=== PATIENT | male | born 1965 | race Caucasian/White ===

== ENCOUNTER 2025-01-17 23:11 | Emergency (ER) | payer SELFPAY ==
[2025-01-17 23:14] VITALS: BP 157/76; PULSE 100; RESP 28; TEMP 36.8; O2SAT 90; BMI 32.5
--- NOTE | 2025-01-17 23:46 | XRR_ITS ---
PROCEDURE INFORMATION: Exam: XR Chest Exam date and time: 01/17/2025 11:51 PM Age: 59 years old Clinical indication: Shortness of breath; Additional info: Sob/ copd TECHNIQUE: Imaging protocol: Radiologic exam of the chest. Views: 1 view. COMPARISON: No relevant prior studies available. FINDINGS: Lungs: Mild COPD. No consolidation. Minor areas of bibasilar atelectasis or scarring. A few minute calcified lung nodules are seen incidentally. Pleural spaces: Unremarkable. No pleural effusion. No pneumothorax. Heart/Mediastinum: Borderline cardiomegaly. Bones/joints: Unremarkable. XR/XR chest 1V portable [id number] IMPRESSION: No acute findings.
--- NOTE | 2025-01-17 23:53 | ED_ITS ---
Documented by User: MIC Jessica 01/17/25 23:56 HPI - URI/Sore Throat 2 General: Chief Complaint: Upper Respiratory Infection Stated Complaint: fever wont break cough Time Seen by Provider: 01/17/25 23:28 Source: patient Mode of arrival: ambulatory Limitations: no limitations History of Present Illness: This patient is a 59-year-old male with reported past medical history of COPD who presents emerged department complaining of multiple upper respiratory symptoms beginning yesterday. States that he woke up last night with chills and diffuse bodyaches to his back and lower extremities. Also has been running a fever that he states was unable to break until he took a hot bath before coming to the ED, temp 98.3 during triage. Also of note is having shortness of breath as well as a productive cough, has been using his albuterol inhaler. Is noting some lower abdominal pain that is intermittent overall. Noting congestion and rhinorrhea. No known sick contact exposure. No calf swelling or pain reported. No chest pain or palpitations. He notes that he has been taking ibuprofen all day, has taken 24 200 mg tablets. MD elicited complaint: fever, cough, rhinorrhea and nasal congestion Pertinent past history: COPD Onset (ago): day(s) Consistency: constant Severity: moderate Description of mucous: clear Able to tolerate fluids by mouth: Yes Associated symptoms: Reports abdominal pain, chills, fever(s) and nasal congestion; Deny chest pain, diarrhea, ear or mastoid pain, headache(s), nausea or vomiting Treatments prior to arrival: ibuprofen and other (Albuterol inhaler) Related Data Allergies Allergy/AdvReac Type Severity Reaction Status Date / Time No Known Allergies Allergy Verified 01/17/25 23:23 Review of Systems 2 General: Reports: 10 or more systems reviewed and unremarkable except in HPI and below Const: Reports: fever(s), chills and body aches; Denies: fatigue Eyes: Denies: change in vision ENMT: Reports: nasal discharge and nasal congestion; Denies: throat pain or ear or mastoid pain Card: Denies: chest pain, palpitations, swelling of feet/ankles or lightheadedness Resp: Reports: dyspnea and productive cough; Denies: wheezing GI: Reports: abdominal pain; Denies: nausea, vomiting, diarrhea or constipation : Denies: flank pain, difficulty urinating, dysuria or urinary frequency Musc: Reports: back pain and extremity pain; Denies: neck pain or joint pain Skin/Breast: Denies: rash Neuro: Denies: headache(s), numbness in extremities or weakness in extremities Physical Exam 2 Const: COMMON NORMALS: no acute distress, patient oriented x3 and no limitations GENERAL APPEARANCE: cooperative, comfortable and well developed ORIENTATION/CONSCIOUSNESS: Yes awake, Yes oriented to person, Yes oriented to place and Yes oriented to time HENMT: COMMON NORMALS: normocephalic, atraumatic and hearing grossly normal bilaterally HEAD & SCALP: normocephalic and atraumatic Eye: COMMON NORMALS: Equal, round and reactive pupils present, EOMs intact bilaterally and conjunctivae normal CONJUNCTIVA: Yes conjunctivae normal P UPIL: Yes Equal, round and reactive pupils present Neck/C-Spine: COMMON NORMALS: full ROM, supple and no JVD Resp: COMMON NORMALS: normal respiratory effort, No retractions and No use of accessory muscles OTHER: Mild diffuse expiratory wheezing. Mild tachypnea. No use of accessory muscles. Cardio: COMMON NORMALS: no JVD, regular rate, regular rhythm, No clicks present (Cardio), No murmurs present (Cardio) and No rub (Cardio) RATE: r egular rate RHYTHM: regular rhythm GI: COMMON NORMALS: Normal to inspection, nondistended, normoactive bowel sounds present, Soft to palpation and non-tender INSPECTION: Yes central obesity AUSCULTATION: Yes normoactive bowel sounds PALPATION: Yes Soft to palpation RECTAL EXAM: Yes deferred Extremity: COMMON NORMALS: normal to inspection, full ROM, capillary refill normal, no clubbing, cyanosis or edema, no calf tenderness and no pedal edema Neuro: COMMON NORMALS: patient oriented x3, moves all extremities, no focal motor deficits and no sensory deficits noted SENSORIUM/ORIENTATION: Yes oriented to person, Yes oriented to place and Yes oriented to time Psych: COMMON NORMALS: mental status grossly normal and Normal thought process present THOUGHT PROCESS: Normal thought process present Skin: COMMON NORMALS: no rashes or lesions noted GENERAL SKIN EXAM: no rashes or lesions noted Course 2 Vital Signs: Vital signs: Vital Signs Temperature 98.3 F 01/17/25 23:14 Pulse Rate 95 01/18/25 00:57 Respiratory Rate 20 H 01/18/25 00:57 Blood Pressure 157/76 01/17/25 23:14 Pulse Oximetry 95 01/18/25 00:57 Oxygen Delivery Me thod Room Air 01/18/25 00:57 MDM - URI/Sore Throat Lab Data 01/17/25 23:54 01/17/25 23:54 Radiology Impressions Chest X-Ray 01/17/25 23:46 IMPRESSION: No acute findings. Chest CTA 01/18/25 00:19 IMPRESSION: 1. No definite PE or consolidation noted. 2. At least mild bilateral hilar and mediastinal nonspecific lymphadenopathy. Recommend six-month follow-up. 3. A few chronic/incidental findings above. Laboratory Results WBC 5.04 10^3/uL (3.29-11.43) 01/17/25 23:54 RBC 4.76 10^6/uL (3.85-5.65) 01/17/25 23:54 Hgb 14.40 g/dL (11.27-16.99) 01/17/25 23:54 Hct 41.4 % (37-53) 01/17/25 23:54 MCV 87.0 fl (82-101) 01/17/25 23:54 MCH 30.3 pg (27-33) 01/17/25 23:54 MCHC 34.8 g/dL (30-55) 01/17/25 23:54 RDW 12.3 % (12.1-15.1) 01/17/25 23:54 Plt Count 154 10^3/cmm (157-399) L 01/17/25 23:54 MPV 9.4 fL (7.4-10.4) 01/17/25 23:54 Neut % (Auto) 79.4 % 01/17/25 23:54 Lymph % (Auto) 7.9 % 01/17/25 23:54 Reeves % (Auto) 10.3 % 01/17/25 23:54 Eos % (Auto) 0.8 % 01/17/25 23:54 Baso % (Auto) 1.0 % 01/17/25 23:54 Neut # (Auto) 4.00 10^3/uL (1.8-7.7) 01/17/25 23:54 Lymph # (Auto) 0.4 10^3/uL (0.8-4.8) L 01/17/25 23:54 Reeves # (Auto) 0.5 10^3/uL (0.2-0.9) 01/17/25 23:54 Eos # (Auto) 0.0 10^3/uL (0.0-0.8) 01/17/25 23:54 Baso # (Auto) 0.1 10^3/uL (0.0-0.1) 01/17/25 23:54 Nucleated RBC % (auto) 0 % 01/17/25 23:54 Nucleated RBCs # 0.0 /100WBC 01/17/25 23:54 D-Dimer 0.81 ug/mLFEU (0-0.59) H 01/17/25 23:54 Sodium 142 mmol/L (136-145) 01/17/25 23:54 Potassium 3.6 mmol/L (3.5-5.1) 01/17/25 23:54 Chloride 105 mmol/L (98-107) 01/17/25 23:54 Carbon Dioxide 24 mmol/L (22-29) 01/17/25 23:54 Anion Gap 16.6 (5-19) 01/17/25 23:54 BUN 12 mg/dL (6-20) 01/17/25 23:54 Creatinine 1.5 mg/dL (0.7-1.2) H 01/17/25 23:54 GFR Calculation 48.2 mL/min (90-130) L 01/17/25 23:54 Glucose 105 mg/dL (65-115) 01/17/25 23:54 Calculated Osmolality 294 mOsm/kg (285-295) 01/17/25 23:54 Calcium 8.9 mg/dL (8.5-10.5) 01/17/25 23:54 Total Bilirubin 0.4 mg/dL (0.15-1.2) 01/17/25 23:54 AST 44 U/L (0-40) H 01/17/25 23:54 ALT 56 U/L (0-41) H 01/17/25 23:54 Alkaline Phosphatase 84 U/L (40-130) 01/17/25 23:54 Total Protein 6.9 g/dL (6.6-8.7) 01/17/25 23:54 Albumin 4.2 g/dL (3.5-5.2) 01/17/25 23:54 Globulin 2.7 g/dL (1.3-4.6) 01/17/25 23:54 Influenza A (PCR) Positive (Negative) 01/17/25 23:43 Influenza Type B (PCR) Negative (Negative) 01/17/25 23:43 RSV (PCR) Negative (Negative) 01/17/25 23:43 SARS-CoV-2 (PCR) Negative (Negative) 01/17/25 23:43 Discharge Plan Discharge Patient Disposition: Home Clinical Impression: Influenza A Condition: Stable Discharge Orders: Discharge ED (Routine); Ordered 01/18/25 Ordered By: Chon Natarajan Patient Instructions: Influenza (DC) Activity Restrictions/Additional Instructions: Thank you for choosing [facility] for your healthcare needs today. Please realize that you were seen in the emergency department and that we are providing you with an emergency medical screening exam and this may not be a complete and all exclusive of all testing and/or medical workup we may need to determine your element or severity of your illness. It is very important that you follow-up as instructed with your primary care provider or specialist for the additional evaluation and to discuss your medical treatment plan. You may return to the emergency department should you have concerns or if your condition changes or worsens in any way. Print Language: Turkish Coding Level of Care Code ED [employer] for [employer] Documented by User: Chon Natarajan DO 01/18/25 01:05 HPI - URI/Sore Throat 2 General: Chief Complaint: Upper Respiratory Infection Stated Complaint: fever wont break cough Time Seen by Provider: 01/17/25 23:28 Related Data Allergies Allergy/AdvReac Type Severity Reaction Status Date / Time No Known Allergies Allergy Verified 01/17/25 23:23 Course 2 Vital Signs: Vital signs: Vital Signs Temperature 98.3 F 01/17/25 23:14 Pulse Rate 95 01/18/25 00:57 Respiratory Rate 20 H 01/18/25 00:57 Blood Pressure 157/76 01/17/25 23:14 Pulse Oximetry 95 01/18/25 00:57 Oxygen Delivery Me thod Room Air 01/18/25 00:57 MDM - URI/Sore Throat Medical Decision Making Patient care transitioned myself at shift change, lab work was reviewed as well as chest x-ray, chest CT a, patient was influenza A positive. Patient be discharged home Lab Data 01/17/25 23:54 01/17/25 23:54 Radiology Impressions Chest X-Ray 01/17/25 23:46 IMPRESSION: No acute findings. Chest CTA 01/18/25 00:19 IMPRESSION: 1. No definite PE or consolidation noted. 2. At least mild bilateral hilar and mediastinal nonspecific lymphadenopathy. Recommend six-month follow-up. 3. A few chronic/incidental findings above. Laboratory Results WBC 5.04 10^3/uL (3.29-11.43) 01/17/25 23:54 RBC 4.76 10^6/uL (3.85-5.65) 01/17/25 23:54 Hgb 14.40 g/dL (11.27-16.99) 01/17/25 23:54 Hct 41.4 % (37-53) 01/17/25 23:54 MCV 87.0 fl (82-101) 01/17/25 23:54 MCH 30.3 pg (27-33) 01/17/25 23:54 MCHC 34.8 g/dL (30-55) 01/17/25 23:54 RDW 12.3 % (12.1-15.1) 01/17/25 23:54 Plt Count 154 10^3/cmm (157-399) L 01/17/25 23:54 MPV 9.4 fL (7.4-10.4) 01/17/25 23:54 Neut % (Auto) 79.4 % 01/17/25 23:54 Lymph % (Auto) 7.9 % 01/17/25 23:54 Reeves % (Auto) 10.3 % 01/17/25 23:54 Eos % (Auto) 0.8 % 01/17/25 23:54 Baso % (Auto) 1.0 % 01/17/25 23:54 Neut # (Auto) 4.00 10^3/uL (1.8-7.7) 01/17/25 23:54 Lymph # (Auto) 0.4 10^3/uL (0.8-4.8) L 01/17/25 23:54 Reeves # (Auto) 0.5 10^3/uL (0.2-0.9) 01/17/25 23:54 Eos # (Auto) 0.0 10^3/uL (0.0-0.8) 01/17/25 23:54 Baso # (Auto) 0.1 10^3/uL (0.0-0.1) 01/17/25 23:54 Nucleated RBC % (auto) 0 % 01/17/25 23:54 Nucleated RBCs # 0.0 /100WBC 01/17/25 23:54 D-Dimer 0.81 ug/mLFEU (0-0.59) H 01/17/25 23:54 Sodium 142 mmol/L (136-145) 01/17/25 23:54 Potassium 3.6 mmol/L (3.5-5.1) 01/17/25 23:54 Chloride 105 mmol/L (98-107) 01/17/25 23:54 Carbon Dioxide 24 mmol/L (22-29) 01/17/25 23:54 Anion Gap 16.6 (5-19) 01/17/25 23:54 BUN 12 mg/dL (6-20) 01/17/25 23:54 Creatinine 1.5 mg/dL (0.7-1.2) H 01/17/25 23:54 GFR Calculation 48.2 mL/min (90-130) L 01/17/25 23:54 Glucose 105 mg/dL (65-115) 01/17/25 23:54 Calculated Osmolality 294 mOsm/kg (285-295) 01/17/25 23:54 Calcium 8.9 mg/dL (8.5-10.5) 01/17/25 23:54 Total Bilirubin 0.4 mg/dL (0.15-1.2) 01/17/25 23:54 AST 44 U/L (0-40) H 01/17/25 23:54 ALT 56 U/L (0-41) H 01/17/25 23:54 Alkaline Phosphatase 84 U/L (40-130) 01/17/25 23:54 Total Protein 6.9 g/dL (6.6-8.7) 01/17/25 23:54 Albumin 4.2 g/dL (3.5-5.2) 01/17/25 23:54 Globulin 2.7 g/dL (1.3-4.6) 01/17/25 23:54 Influenza A (PCR) Positive (Negative) 01/17/25 23:43 Influenza Type B (PCR) Negative (Negative) 01/17/25 23:43 RSV (PCR) Negative (Negative) 01/17/25 23:43 SARS-CoV-2 (PCR) Negative (Negative) 01/17/25 23:43 All radiology interpretation(s) finalized by discharge Discharge Plan Discharge Patient Disposition: Home Clinical Impression: Influenza A Condition: Stable Discharge Orders: Discharge ED (Routine); Ordered 01/18/25 Ordered By: Chon Natarajan Patient Instructions: Influenza (DC) Activity Restrictions/Additional Instructions: Thank you for choosing [facility] for your healthcare needs today. Please realize that you were seen in the emergency department and that we are providing you with an emergency medical screening exam and this may not be a complete and all exclusive of all testing and/or medical workup we may need to determine your element or severity of your illness. It is very important that you follow-up as instructed with your primary care provider or specialist for the additional evaluation and to discuss your medical treatment plan. You may return to the emergency department should you have concerns or if your condition changes or worsens in any way. Print Language: Turkish Coding Level of Care Code ED Senior [employer] for [employer]
[2025-01-18 00:01] LABS: Basophils # 0.1 10^3/uL (0.0-0.1); Eosinophils % 0.8 %; Hematocrit 41.4 % (37-53); Lymphocytes # 0.4 10^3/uL (0.8-4.8); Lymphocytes % 7.9 %; Mean Corpuscular HGB Conc 34.8 g/dL (30-55); Mean Corpuscular Hemoglobin 30.3 pg (27-33); Mean Platelet Volume 9.4 fL (7.4-10.4); Monocytes # 0.5 10^3/uL (0.2-0.9); Monocytes % 10.3 %; Neutrophils % 79.4 %; Nucleated Red Blood Cells % 0 %; Platelet Count 154 10^3/cmm (157-399); Red Blood Count 4.76 10^6/uL (3.85-5.65); Red Cell Distribution Width 12.3 % (12.1-15.1); White Blood Count 5.04 10^3/uL (3.29-11.43)
[2025-01-18 00:18] LABS: D Dimer 0.81 ug/mLFEU (0-0.59)
--- NOTE | 2025-01-18 00:19 | CTR_ITS ---
PROCEDURE INFORMATION: Exam: CTA Chest With Contrast Exam date and time: 01/18/2025 12:36 AM Age: 59 years old Clinical indication: Abnormal findings; Abnormal diagnostic tests; Elevated d-dimer; Shortness of breath; Additional info: SOB, elevated d dimer TECHNIQUE: Imaging protocol: Computed tomographic angiography of the chest with contrast. Exam focused on the arteries. 3D rendering (Not supervised by radiologist): MIP and/or 3D reconstructed images were created by the technologist. Radiation optimization: All CT scans at this facility use at least one of these dose optimization techniques: automated exposure control; mA and/or kV adjustment per patient size (includes targeted exams where dose is matched to clinical indication); or iterative reconstruction. Contrast material: OMNIPAQUE 350; Contrast volume: 74 ml; Contrast route: INTRAVENOUS (IV); COMPARISON: CR (CHEST, ) 01/17/2025 11:51 PM RADIATION DOSE METRICS: Total DLP (mGy-cm): 394.9 FINDINGS: Pulmonary arteries: No main or lobar PE. The peripheral arteries are obscured in several places by mild motion as well as truncation and venous contamination artifacts. Aorta: Advanced diffuse vascular calcification noted. No aortic aneurysm. No aortic dissection. Lungs: Minor areas of bibasilar atelectasis or scarring. No focal pneumonia. No dominant lung mass or spiculated nodule. Pleural spaces: No pneumothorax. No pleural effusion noted. Heart: The heart is mildly enlarged. Lymph nodes: There is mild to moderate bilateral hilar and mediastinal lymphadenopathy. Liver: Liver is steatotic. Bones/joints: Skeletal structures are age appropriate. No acute fracture is seen. Mild degenerative change. Soft tissues: Unremarkable. CT/CT angio chest PE protcl [id number] IMPRESSION: 1. No definite PE or consolidation noted. 2. At least mild bilateral hilar and mediastinal nonspecific lymphadenopathy. Recommend six-month follow-up. 3. A few chronic/incidental findings above.
[2025-01-18 00:22] LABS: Alanine Aminotransferase 56 U/L (0-41); Albumin Level 4.2 g/dL (3.5-5.2); Alkaline Phosphatase 84 U/L (40-130); Anion Gap 16.6 (5-19); Aspartate Amino Transferase 44 U/L (0-40); Blood Urea Nitrogen 12 mg/dL (6-20); Calcium 8.9 mg/dL (8.5-10.5); Carbon Dioxide 24 mmol/L (22-29); Chloride 105 mmol/L (98-107); Creatinine Clr Calc Pharmacy 63.2767; Globulin 2.7 g/dL (1.3-4.6); Glomerular Filtration Rate 48.2 mL/min (90-130); Glucose 105 mg/dL (65-115); Osmolality Calculated 294 mOsm/kg (285-295); Potassium 3.6 mmol/L (3.5-5.1); Sodium 142 mmol/L (136-145); Total Bilirubin 0.4 mg/dL (0.15-1.2); Total Protein 6.9 g/dL (6.6-8.7)
[2025-01-18 00:23] LABS: Influenza A POSITIVE (Negative); Influenza B NEGATIVE (Negative); Respiratory Syncytial Virus Ce NEGATIVE (Negative); SARS-CoV-2 PCR NEGATIVE (Negative)
[2025-01-18] MEDS: iohexol 350 mg/mL 500 mL Btl (per mL) IV (00:38)
[2025-01-18] MEDS: ipratropium-albuterol 3 mL Neb INHALATION (00:53)
[2025-01-18 00:54] VITALS: PULSE 89; RESP 20
[2025-01-18 00:57] VITALS: PULSE 95; RESP 20; O2SAT 95
[2025-01-18 01:08] VITALS: BP 146/89; PULSE 102; O2SAT 93
[2025-01-18 01:16] VITALS: BP 146/89; PULSE 96; O2SAT 94
== END 2025-01-18 01:17 | disposition home or self-care (01) ==
PROVIDERS: Emergency Provider Physician Assistant
DX: J10.1 Influenza due to other identified influenza virus with other respiratory manifestations (principal); Z11.52 Encounter for screening for COVID-19
CPT/HCPCS: 36415; 71045; 71275; 80053; 85025; 85378; 87637; 94640; 99285